=== PATIENT | female | born 1940 | race Caucasian/White ===

== ENCOUNTER 2020-07-16 14:31 | Emergency (ER) | payer BC ==
[~2020-07-16] VITALS: Ht 167.6 cm; Wt 70.8 kg
[~2020-07-16 14:31] MED LIST: ATEN-41 PO; LEVO88TA5 PO; LOP600 PO
[2020-07-16 14:35] VITALS: BP_SYST 156
--- NOTE | 2020-07-16 14:35 | NUR ---
Patient to ER bed 07 to gown for evaluation. Side rails up.
--- NOTE | 2020-07-16 14:37 | NUR ---
Patient arrived in the ED c/o red, itchy rashes all over her chest, neck and forehead. Denied any chest pain or shortness of breath. Denied any fevers, chills, nausea or vomiting. Patient is alert and oriented x4, respirations even and unlabored, speaking in full sentences, and using a wheelchair. VSS, pain level 0/10. Informed of the approximate wait time. Instructed to notify ED staff for any changes in condition or worsening of symptoms while waiting to be seen by an ED provider. Patient verbalized understanding.
--- NOTE | 2020-07-16 14:51 | NUR ---
ER Dr. Hirsch at bedside examining patient.
[2020-07-16] MEDS ORDERED: methylPREDNISolone SOD SUCC/PF 62.5 MG/ML VIAL IVP ONE (15:00)
[2020-07-16] MEDS ORDERED: EPINEPHrine 1 MG/ML AMP SUBCUT ONE (15:00)
[2020-07-16] MEDS ORDERED: DIPHENHYDRAMINE INJ 50 MG/ML VIAL IVP ONE (15:00)
--- NOTE | 2020-07-16 15:05 | NUR ---
# 20 gauge angiocath placed to LFA. Use of asceptic technique. Opsite placed over site. Blood return noted. Flushed with 10 cc of normal saline. No evidence of infiltration noted. Patient tolerated well.
--- NOTE | 2020-07-16 15:07 | NUR ---
Administered Benadryl and Solumedrol IVP and Epinephrine SC as ordered by Dr. Hirsch. Patient tolerated the medications well. See eMAR for details.
[2020-07-16 16:16] VITALS: BP_SYST 156
== END 2020-07-16 16:15 | disposition home or self-care (01) ==
LOC: SED 14:31
DX: L50.9 Urticaria, unspecified (principal); I10 Essential (primary) hypertension; E07.9 Disorder of thyroid, unspecified; E78.5 Hyperlipidemia, unspecified; Z88.8 Allergy status to other drugs, medicaments and biological substances
CPT/HCPCS: 96372; 96374; 96375; 99284; J0171; J1200; J2930

== ENCOUNTER 2021-09-17 11:24 | Inpatient (IN) | payer BC, SELFPAY ==
[~2021-09-17] VITALS: Ht 167.6 cm; Wt 68.0 kg
--- NOTE | 2021-09-17 11:25 | NUR ---
Patient to ER bed 3 to gown for evaluation. Side rails up. Report given to OLGA LIDIA Palma.
[2021-09-17 11:40] VITALS: BP_SYST 155
--- NOTE | 2021-09-17 11:56 | NUR ---
SPOKE TO [facility] UPDATED HIM WITH PLAN OF CARE
[2021-09-17] MEDS ORDERED: MORPHINE 2 MG/ML INJ. SYRINGE IVP ONE (12:30)
[2021-09-17] MEDS ORDERED: NOR10 PO (12:48)
[2021-09-17 12:55] LABS: BASOPHILS # (AUTO) 0.1 K/uL (0.0-0.2); BASOPHILS % (AUTO) 0.9 % (0.0-2.0); EOSINOPHILS # (AUTO) 0.1 K/uL (0.0-0.4); EOSINOPHILS % (AUTO) 1.3 % (0.0-4.0); HEMATOCRIT 39.1 % (36-48); HEMOGLOBIN 13.2 g/dL (12.0-16.0); LYMPHOCYTES # (AUTO) 1.5 K/uL (1.0-5.5); LYMPHOCYTES % (AUTO) 14.9 % (20.5-51.5); MEAN CORPUSCULAR HEMOGLOBIN 29 pg (27-31); MEAN CORPUSCULAR HGB CONC 34 % (32-36); MEAN CORPUSCULAR VOLUME 87 fL (79.0-98.0); MONOCYTES # (AUTO) 0.6 K/uL (0.0-1.0); MONOCYTES % (AUTO) 6.3 % (1.7-9.3); NEUTROPHILS # (AUTO) 7.8 K/uL (1.8-7.7); NEUTROPHILS % (AUTO) 76.6 % (40.0-70.0); PLATELET COUNT (AUTO) 325 K/uL (130-430); RED CELL DISTRIBUTION WIDTH 13.3 % (9.0-15.0); WHITE BLOOD COUNT (AUTO) 10.1 K/uL (4.8-10.8)
[2021-09-17 13:02] LABS: ANION GAP 14 (5-15); CALCIUM 9.9 mg/dL (8.4-11.0); CHLORIDE 102 mmol/L (98-107); CREATININE 1.39 mg/dL (0.55-1.30); GLUCOSE 110 mg/dL (70-99); POTASSIUM 3.9 mmol/L (3.5-5.1); SODIUM SERUM 138 mmol/L (136-145); UREA NITROGEN, BLOOD 31 mg/dL (8-21)
[2021-09-17 13:05] LABS: PROTHROMBIN TIME 10.4 SECS (9.5-12.5)
[2021-09-17 13:08] LABS: ALANINE AMINOTRANSFERASE 18 U/L (12-78); ALBUMIN 3.9 g/dL (3.4-4.8); ASPARTATE AMINOTRANSFERASE 20 U/L (10-37); TOTAL BILIRUBIN 0.6 mg/dL (0.0-1.0)
[2021-09-17 13:18] LABS: BILIRUBIN,URINE NEGATIVE (NEGATIVE); CLARITY/URINE CLEAR (CLEAR); COLOR,URINE YELLOW (YELLOW); GLUCOSE,URINE NEGATIVE (NEGATIVE); KETONES,URINE NEGATIVE (NEGATIVE); LEUKOCYTE ESTERASE ,URINE NEGATIVE (NEGATIVE); NITRITE, URINE NEGATIVE (NEGATIVE); PROTEIN URINE NEGATIVE (NEGATIVE); UROBILINOGEN,URINE 0.2 (0.2-1.0)
[2021-09-17 13:19] LABS: BLOOD, URINE TRACE (NEGATIVE)
[2021-09-17 13:38] LABS: BACTERIA,URINE FEW /HPF (None Seen); WBC,URINE 0-3 /HPF (0-3)
[2021-09-17] MEDS: D5NS 1,000 ML IV SCH (14:05)
[2021-09-17] MEDS ORDERED: METOCLOPRAMIDE HCL 10 MG/2 ML VIAL IVP PRN (14:15)
[2021-09-17] MEDS ORDERED: ACETAMINOPHEN 325 MG TABLET PO PRN (14:15)
[2021-09-17] MEDS ORDERED: MORPHINE 2 MG/ML INJ. SYRINGE IVP PRN (14:15)
[2021-09-17] MEDS ORDERED: ONDANSETRON HCL 4 MG/2 ML VIAL IVP PRN (14:15)
[2021-09-17] MEDS ORDERED: MORPHINE 4 MG INJ. 4 MG/ML VIAL IVP PRN (14:15)
--- NOTE | 2021-09-17 15:30 | NUR ---
CALLED TO GIVE REPORT RN SAID THAT THEY ARE NOT READY AND WILL CALL WHEN THEY ARE READY
--- NOTE | 2021-09-17 16:05 | NUR ---
ADMISSION NOTE Received patient from ER via gurney. Patient admitted with diagnosis of left hip fracture. Patient is awake, alert, oriented X 4. Patient oriented to hospital room, call light, toileting, pain management and safety-teach back done. Patient informed that Jaqueline/Alma Delia will be her nurse and that their room number is 110A. Personal belongings checked and Belongings List documented. Call light within reach.
--- NOTE | 2021-09-17 16:05 | NUR ---
ADMISSION NOTE Received patient from ER via gurney. Patient admitted with diagnosis of . Patient is awake, alert, oriented X 4. Patient oriented to hospital room, call light, toileting, pain management and safety-teach back done. Patient informed that Jaqueline/Alma Delia will be her nurse and that their room number is 110A. Personal belongings checked and Belongings List documented. Call light within reach.
--- NOTE | 2021-09-17 16:16 | NUR ---
Patient will be admitted to care of LINA DUGGAN. Admitted to MED SURG unit. Will go to room 110. Belongings list completed. Complete and up to date summary report printed. SBAR report to be given at bedside with opportunity for questions.
--- NOTE | 2021-09-17 16:21 | NUR ---
CONSULTATION PAGED REASON FOR CONSULTATION:hip fx WAS CONSULT CALED?y PERSON WHO WAS NOTIFIED:LEWIS DAILY CONSULTING PHYSICIAN:LEWIS DAILY CORK MOLDER SPECIALTY:ORTHO CORK MOLDER PHONE NUMBER:[phone] REQUESTING PHYSICIAN:REID LOPEZ
[2021-09-17 17:06] VITALS: BP_SYST 145
--- NOTE | 2021-09-17 18:50 | NUR ---
CLOSING NOTE Patient currently resting in bed and respirations remain even and non-labored on room air. IV is patent and infusing fluids as ordered. Youngblood catheter is patent and draining by gravity. Bed locked in lowest position and call light is within reach. at beside. Will endorse to table games shift manager RN.
[2021-09-17] MEDS: ENOXAPARIN SODIUM 40 MG/0.4 ML SYRINGE SUBCUT SCH (22:17)
[2021-09-18 00:24] VITALS: BP_SYST 157
[2021-09-18 04:00] VITALS: BP_SYST 152
--- NOTE | 2021-09-18 05:17 | NUR ---
Nutrition Update Nik Scale 14 noted. Pt admitted for Hip fracture Diet: Regular BMI: 24.2 kg/m2 RD to follow per nutrition care standards.
[2021-09-18] MEDS: OXYCODONE/ACETAMINOPHEN 5-325 TABLET PO PRN ×3 (05:22→16:57)
[2021-09-18] MEDS: D5NS 1,000 ML IV SCH ×2 (05:32→15:50)
--- NOTE | 2021-09-18 07:53 | NUR ---
OPENING NOTE Received shift report from operations supervisor 2nd shift RN. Patient AxOx4 currently resting in bed and respirations remain even and non-labored on room air. IV is patent and infusing fluids as ordered. Youngblood catheter is patent and draining by gravity. Bed locked in lowest position and call light is within reach. Will continue to monitor.
[2021-09-18 08:02] VITALS: BP_SYST 135
[2021-09-18] MEDS ORDERED: SEVOFLURANE 15 MIN GAS INH ONE (11:19)
[2021-09-18] MEDS ORDERED: MIDAZOLAM HCL 5 MG/5 ML VIAL IVP ONE (11:19)
[2021-09-18] MEDS ORDERED: fentaNYL CITRATE 250 MCG/5 ML AMP IV ONE (11:19)
[2021-09-18] MEDS ORDERED: KETOROLAC TROMETHAMINE 30 MG VIAL IVP ONE (11:19)
[2021-09-18] MEDS ORDERED: PROPOFOL 200MG/ 20ML VIAL (DIPRIVAN) IV ONE (11:19)
[2021-09-18] MEDS ORDERED: LIDOCAINE 1% 10 MG/ML, 20 ML MDV INJ ONE (11:19)
[2021-09-18] MEDS ORDERED: CEFAZOLIN 2 GM IVPB PREMIX 50 ML IV ONE (11:19)
[2021-09-18] MEDS ORDERED: BUPIVACAINE /EPINEPHRINE/PF 0.25% 30 ML VIAL INJ ONE (11:19)
[2021-09-18] MEDS ORDERED: DEXAMETHASONE SOD PHOSPHATE 4 MG/ML VIAL IVP ONE (11:19)
[2021-09-18] MEDS ORDERED: LR 1,000 ML IV.SOLN IV ONE (11:19)
[2021-09-18] MEDS ORDERED: NS IRRIG SOLN 1000 ML IR ONE (11:19)
[2021-09-18] MEDS ORDERED: ONDANSETRON HCL 4 MG/2 ML VIAL IVP ONE (11:19)
[2021-09-18 11:36] VITALS: BP_SYST 156
[2021-09-18 15:34] VITALS: BP_SYST 154
--- NOTE | 2021-09-18 17:20 | NUR ---
DOCTOR'S NOTE Spoke with Dr. Justin on the phone. Informed that patient will have surgery tomorrow at 10:30 AM. NPO orders after midnight. Noted and will carry out.
--- NOTE | 2021-09-18 18:48 | NUR ---
CLOSING NOTE Patient currently resting in bed and respirations remain even and non-labored on room air. IV is patent and infusing fluids as ordered. Youngblood is patent and draining by gravity. All needs met throughout shift. Bed locked in lowest position and call light is within reach. Will endorse to tobacco stripping machine operator RN.
[2021-09-18] MEDS: ENOXAPARIN SODIUM 40 MG/0.4 ML SYRINGE SUBCUT SCH (21:00)
[2021-09-18] MEDS: GEMFIBROZIL 600 MG TABLET (LOPID) PO SCH (21:46)
[2021-09-19 00:27] VITALS: BP_SYST 167
--- NOTE | 2021-09-19 01:54 | NUR ---
PATIENT REMOVES HER IV AND PECK CATHETER. WILL REPLACE. DELEGATE PECK IF PATIENT REFUSES. STAN HERNANDEZ RN
[2021-09-19] MEDS: D5NS 1,000 ML IV SCH ×2 (05:03→18:20)
--- NOTE | 2021-09-19 05:05 | NUR ---
DELEGATE PECK TO NEXT TEAM. IV RIGHT FOREARM 20 GAUGE INSERTED X1 STICK. STAN HERNANDEZ RN
--- NOTE | 2021-09-19 07:07 | NUR ---
HANDOFF WITH OLGA LIDIA GARSIA. STAN HERNANDEZ RN
--- NOTE | 2021-09-19 07:20 | NUR ---
DRY BLOOD ON THE LIPS NOTED DRY BLOOD ON UPPER AND LOWER LIPS. NO SIGN OF ACTIVE BLEEDING. GRAIN INSPECTOR GAVE PATIENT SPONGE (STICKS) TO CLEAN IT OFF.
[2021-09-19 08:00] VITALS: BP_SYST 167
[2021-09-19] MEDS: LEVOTHYROXINE SODIUM 0.088 MG TABLET PO SCH (09:45)
[2021-09-19] MEDS: GEMFIBROZIL 600 MG TABLET (LOPID) PO SCH ×2 (09:45→21:47)
[2021-09-19] MEDS: amLODIPine BESYLATE 10 MG TABLET PO SCH (09:45)
[2021-09-19] MEDS: OXYCODONE/ACETAMINOPHEN 5-325 TABLET PO PRN ×2 (09:46→21:46)
--- NOTE | 2021-09-19 10:00 | NUR ---
DRY BLOOD ON THE LIPS WET CLOTHE USED TO APPLIED TO PATIENT UPPER AND LOWER LIP TO BE CLEANED OFF. BLOOD IS TOO DRY TO BE REMOVED. HOWEVER, ABLE TO REMOVED SOME OF THE DRY BLOOD. NO ACTIVE BLEEDING NOTED. PER PATIENT, SHE DOES NOT KNOW WHAT HAPPENED.
[2021-09-19] MEDS ORDERED: ACETAMINOPHEN I.V. 1000 MG 100 ML IV ONE (12:06)
[2021-09-19] MEDS ORDERED: HYDROmorphone 1 MG/ML INJ. CARTRIDGE IVP PRN ×2 (12:15)
[2021-09-19] MEDS ORDERED: MEPERIDINE HCL/PF 25 MG/ML DISP.SYRIN IVP PRN (12:15)
[2021-09-19] MEDS ORDERED: MIDAZOLAM HCL 2 MG/2 ML VIAL (VERSED) IVP PRN (12:15)
[2021-09-19] MEDS ORDERED: METOCLOPRAMIDE HCL 10 MG/2 ML VIAL IVP PRN (12:15)
[2021-09-19] MEDS ORDERED: hydrALAZINE HCL 20 MG/ML VIAL IVP PRN (12:15)
[2021-09-19] MEDS: LR 1,000 ML IV SCH ×3 (12:15→22:13)
[2021-09-19] MEDS ORDERED: LABETALOL 100 MG/ 20ML VIAL IVP PRN (12:15)
--- NOTE | 2021-09-19 14:00 | NUR ---
NURSING NOTES [id number] 0720AM: PATIENT IS RESTING IN BED, RESTLESS. PER INTERRELATED SPECIAL EDUCATION TEACHER PATIENT PULLED OUT IV AND FC. NEW IV PLACED IN THE RFA BY NIGHT RN. HOWEVER, DID NOT REINSERT F/C. PER RN, PATIENT WILL BE GOING TO [facility] TODAY. NO ADDITIONAL DISTRESS NOTED. BED IN LOW AND LOCK POSITION. BED ALARM ON. CALL LIGHT WITHIN REACH. STABLE CONDITION AT THIS TIME. 0800AM: IV TO THE RFA DISLODGE. PATIENT IS RESTLESS AND TRYING TO MOVE AROUND IN BED. PATIENT ALSO THROW ALL THE BLANKETS ON THE FLOOR. PATIENT IS AAOX4, BUT EPISODE OF FIDGETING. ABLE TO MAKE NEEDS KNOWN. NO ADDITIONAL DISTRESS NOTED. WILL PLACED NEW FC DUE TO PATIENT C/O INCREASE PAIN WHEN MOVED IN BED. EXPLAINED POC AND PATIENT VERBALIZED UNDERSTANDING. WILL CONT TO MONITOR. 0930AM: [facility] AT THE BEDSIDE AND EXPLAINED POC. VERBALIZED UNDERSTANDING. 0935AM: ANESTHESIA AT THE BEDSIDE 1000AM: IV PLACED TO THE LFA 20 GAUGE WITH GOOD BLOOD RETURN. COVER WITH TEGADERM AND SECURE WITH TAPE. F/C IN PLACED AND WELL TOLERATED. F/C DRAINING TO GRAVITY. 1030AM: BEDSIDE REPORT GIVEN TO [facility] NURSE. 1125AM: PATIENT LEFT THE UNIT IN A STABLE CONDITION WITH ACCOMPANYING HER. 1200PM: OFF THE UNIT. 1300: OFF THE UNIT. 1400: OFF THE UNIT.
--- NOTE | 2021-09-19 14:30 | NUR ---
SBAR REPORT FROM [facility] RECEIVED SBAR REPORT FROM [facility] PER REPORT, PATIENT IS AROUSABLE BUT VERY SLEEPY AND SIGN OF CONFUSION, HOWEVER, STABLE AT THIS TIME. AWAITING FOR RETURN.
[2021-09-19 15:00] VITALS: BP_SYST 137
--- NOTE | 2021-09-19 18:00 | NUR ---
NURSING NOTES [id number]: 1450: PATIENT RETURNED FROM [facility] PATIENT IS SLEEPY BUT EASILY AROUSABLE. PATIENT IS AAOX4, ABLE TO MAKE NEEDS KNOWN. FV DRAINING TO GRAVITY. NO ADDITIONAL DISTRESS NOTED. CURRENTLY ON 2LNC. PER REPORT, O2 DESAT TO 90% IN RA. AT THE BEDSIDE. STABLE AT THIS TIME. WILL CONT TO MONITOR. 1530: PATIENT IS RESTING IN BED, ASLEEP. AT THE BEDSIDE READING A BOOK. NO CHANGE FROM PREVIOUS ASSESSMENT. 1630: PATIENT IS RESTING IN BED, ASLEEP. ALSO AT THE BEDSIDE ASLEEP. NO CHANGE FROM PREVIOUS ASSESSMENT. 1730: PATIENT IS RESTING IN BED, ASLEEP. NO CHANGE FROM PREVIOUS ASSESSMENT. EASILY AROUSABLE. PROVIDED A RECLINER BECAUSE HE WAS FALLING ASLEEP. WILL CONT TO MONITOR. 1800: INDUSTRIAL ENGINEERING INTERN DELIVERED DINNER TRAY AND PER , HE WILL FEED HIS (PATIENT) WHEN SHE IS MORE AWAKE. NO ADDITIONAL DISTRESS NOTED. WILL CONT TO MONITOR.
--- NOTE | 2021-09-19 18:59 | NUR ---
CLOSING NOTES: LEFT THIGH DRESSING C/D/I. PER , PATIENT DOES NOT WANT TO EAT BUT RATHER SLEEP. PATIENT IS RESTING IN BED, ASLEEP BUT EASILY AROUSABLE. NO ADDITIONAL DISTRESS NOTED. WILL CONT TO MONITOR.
--- NOTE | 2021-09-19 19:56 | NUR ---
REPORT FROM ADY AND ASSESSMENT OF PATIENT. SHE WILL AGREE TO HAVE PRN PAIN MEDICATION AT BEDTIME FOR PAIN IN THE LEFT HIP. STAN HERNANDEZ RN
[2021-09-19] MEDS: ENOXAPARIN SODIUM 40 MG/0.4 ML SYRINGE SUBCUT SCH (21:47)
[2021-09-20 01:53] VITALS: BP_SYST 126
[2021-09-20] MEDS: D5NS 1,000 ML IV SCH (06:16)
--- NOTE | 2021-09-20 07:25 | NUR ---
PECK DISCONTINUATION PER ORDERS. PATIENT HANDOFF REPORT WITH OLGA LIDIA RIZVI. STAN Subramanian RN
[2021-09-20 07:46] LABS: BASOPHILS % (AUTO) 0.1 % (0.0-2.0); HEMATOCRIT 31.6 % (36-48); HEMOGLOBIN 10.8 g/dL (12.0-16.0); LYMPHOCYTES % (AUTO) 7.4 % (20.5-51.5); MEAN CORPUSCULAR HEMOGLOBIN 29 pg (27-31); MEAN CORPUSCULAR HGB CONC 34 % (32-36); MEAN CORPUSCULAR VOLUME 86 fL (79.0-98.0); MONOCYTES # (AUTO) 0.7 K/uL (0.0-1.0); MONOCYTES % (AUTO) 5.4 % (1.7-9.3); NEUTROPHILS % (AUTO) 87.1 % (40.0-70.0); PLATELET COUNT (AUTO) 280 K/uL (130-430); RED BLOOD CELL COUNT(AUTO) 3.68 MIL/uL (4.2-6.2); WHITE BLOOD COUNT (AUTO) 13.8 K/uL (4.8-10.8)
[2021-09-20 08:07] LABS: ANION GAP 11 (5-15); CALCIUM 8.8 mg/dL (8.4-11.0); CHLORIDE 102 mmol/L (98-107); CREATININE 1.25 mg/dL (0.55-1.30); GLUCOSE 131 mg/dL (70-99); SODIUM SERUM 138 mmol/L (136-145); UREA NITROGEN, BLOOD 23 mg/dL (8-21)
[2021-09-20] MEDS: IBUPROFEN 600 MG TABLET PO PRN ×2 (08:26→16:00)
[2021-09-20] MEDS: GEMFIBROZIL 600 MG TABLET (LOPID) PO SCH ×2 (08:26→21:52)
[2021-09-20] MEDS: amLODIPine BESYLATE 10 MG TABLET PO SCH (08:27)
[2021-09-20] MEDS: LEVOTHYROXINE SODIUM 0.088 MG TABLET PO SCH (08:27)
[2021-09-20 09:18] VITALS: BP_SYST 136
[2021-09-20 12:00] VITALS: BP_SYST 141
--- NOTE | 2021-09-20 14:48 | NUR ---
Dietitian Recommendations * Regular diet w/ Ensure Enlive TID, David BID (supplements provide 1230 kcal/day, 65 gm protein/day) * Encourage increase PO intakes LP, RD Please refer to Nutrition Assessment for details. Addendum: 09/20/21 at [address] Amended: Links added.
[2021-09-20 16:00] VITALS: BP_SYST 145
--- NOTE | 2021-09-20 18:55 | NUR ---
spiking temp this afternoon, willing to use IS x 2, and each time able to go up to at least 1000. voided
[2021-09-20] MEDS: ENOXAPARIN SODIUM 40 MG/0.4 ML SYRINGE SUBCUT SCH (21:54)
[2021-09-21 00:52] VITALS: BP_SYST 134
[2021-09-21] MEDS: IBUPROFEN 600 MG TABLET PO PRN (05:22)
[2021-09-21 07:56] VITALS: BP_SYST 147
[2021-09-21] MEDS: LEVOTHYROXINE SODIUM 0.088 MG TABLET PO SCH (09:09)
[2021-09-21] MEDS: amLODIPine BESYLATE 10 MG TABLET PO SCH (09:09)
[2021-09-21] MEDS: GEMFIBROZIL 600 MG TABLET (LOPID) PO SCH ×2 (09:09→21:26)
--- NOTE | 2021-09-21 10:25 | NUR ---
[facility]CP CM MS ROSENDO MCKAY WAS CALLED, RE: ARRANGE FOR SNF PLACEMENT. LEFT A VOICE MESSAGE.
[2021-09-21 11:45] LABS: BASOPHILS # (AUTO) 0.1 K/uL (0.0-0.2); BASOPHILS % (AUTO) 0.9 % (0.0-2.0); EOSINOPHILS # (AUTO) 0.3 K/uL (0.0-0.4); EOSINOPHILS % (AUTO) 3.7 % (0.0-4.0); HEMATOCRIT 28.1 % (36-48); HEMOGLOBIN 9.7 g/dL (12.0-16.0); LYMPHOCYTES # (AUTO) 1.5 K/uL (1.0-5.5); LYMPHOCYTES % (AUTO) 15.8 % (20.5-51.5); MEAN CORPUSCULAR HEMOGLOBIN 30 pg (27-31); MEAN CORPUSCULAR HGB CONC 35 % (32-36); MEAN CORPUSCULAR VOLUME 87 fL (79.0-98.0); MONOCYTES # (AUTO) 0.6 K/uL (0.0-1.0); MONOCYTES % (AUTO) 6.6 % (1.7-9.3); NEUTROPHILS # (AUTO) 6.8 K/uL (1.8-7.7); PLATELET COUNT (AUTO) 286 K/uL (130-430); RED BLOOD CELL COUNT(AUTO) 3.24 MIL/uL (4.2-6.2); RED CELL DISTRIBUTION WIDTH 13.2 % (9.0-15.0); WHITE BLOOD COUNT (AUTO) 9.3 K/uL (4.8-10.8)
[2021-09-21 12:49] VITALS: BP_SYST 136
--- NOTE | 2021-09-21 15:10 | NUR ---
Note Pt ambulated with PT and FWW from bed to restroom. Tolerated ambulation well. Dr Justin spoke to pt's about his and his 's concerns. PSYCHIATRIC THERAPIST (ortho) came to pt's bedside and changed pt's left hip surgical dressing. Neuro checks on left lower extremity done q2' this shift - WNL. No needs noted at this time. Pt's at bedside most of shift. Call light within reach.
--- NOTE | 2021-09-21 15:53 | NUR ---
[facility]/HCP CM MS ROBBINS CALLED THE INFO: PT IS GOING TO [facility], RM [phone] ([phone]). [facility] WILL TRANSPORT THE PT AT 2100 TONIGHT TO THE SNF.
[2021-09-21 16:45] VITALS: BP_SYST 130
--- NOTE | 2021-09-21 18:35 | NUR ---
Note Attempted to take pt to restroom with FWW and 2 person assist. Pt very weak and unsteady, knees buckled. Pt will be using bedpan or BSC in future, pt and her her told. Pt was checked on q1' and PRN all shift for needs and care. Pt's bed in low position and bed alarm on all shift. Left hip dressing CDI all shift. Call light within reach. Pt's at bedside all shift.
--- NOTE | 2021-09-21 19:09 | NUR ---
SPOKE WITH OLGA LIDIA HYDE, AT [facility] FOR REPORT. STAN HERNANDEZ RN
[2021-09-21 20:32] VITALS: BP_SYST 151
[2021-09-21] MEDS: ENOXAPARIN SODIUM 40 MG/0.4 ML SYRINGE SUBCUT SCH (21:26)
--- NOTE | 2021-09-21 22:09 | NUR ---
All belongings sent with patient spouse at patient bedside. Patient underpad change and perineal care. Identification band removal. Patient intravenous 22 gauge catheter is clean, dry and intact upon removal from left forearm. Juan Francisco Justin RN
== END 2021-09-21 22:13 | DRG 482 ==
LOC: SED 11:24 → SMU 12:53
PROVIDERS: ADMIT Internal Medicine Hospice and Palliative Medicine; ATTEND Internal Medicine Hospice and Palliative Medicine
PROC: 0QH704Z Insertion of Internal Fixation Device into Left Upper Femur, Open Approach (ICD-10-PCS; principal; 2021-09-19 10:30)
DX: S72.142A Displaced intertrochanteric fracture of left femur, initial encounter for closed fracture (principal); E78.5 Hyperlipidemia, unspecified; M10.9 Gout, unspecified; I10 Essential (primary) hypertension; W01.0XXA Fall on same level from slipping, tripping and stumbling without subsequent striking against object, initial encounter; Z20.822 Contact with and (suspected) exposure to COVID-19; Y93.89 Activity, other specified; Y92.89 Other specified places as the place of occurrence of the external cause; Z87.81 Personal history of (healed) traumatic fracture; Z91.041 Radiographic dye allergy status; Z91.013 Allergy to seafood; Z79.899 Other long term (current) drug therapy; Z88.2 Allergy status to sulfonamides; Y99.8 Other external cause status
CPT/HCPCS: 36415; 71045; 73501; 73502; 73552; 80048; 80053; 81000; 82962; 84484; 84702; 85025; 85610-TC; 85730-TC; 86886; 86900; 86901; 87081; 93005; 96374; 96376; 97110-GP; 97116-GP; 97530-GP; 99285; J0131; J0690; J1100; J1650; J1885; J2001; J2250; J2270; J2405; J2704; J3010; J3490; J7120